=== PATIENT | female | born 1950 | race Caucasian/White ===

== ENCOUNTER → 2016-10-01 | Outpatient (CLI) | payer MEDICARE, OTHER ==
[~2016-10-01] MED LIST: ALPR-138 PO; AMBI12.5 PO; BONI150T PO; CALC600T34 PO; COZA50TA PO; FLON0.053; NEXI40CA PO; SIMV20 PO; TAB-TAB PO
[2016-10-01 13:15] LABS: HEMATOCRIT 38.1 % (35.0-46.0); MEAN CELL VOLUME 90.7 FL (80.0-100.0); MEAN CORPUSCULAR HGB CONC 33.1 % (32.0-36.0); PLATELET COUNT 212 TH/MM3 (150-450); RED CELL DISTRIBUTION WIDTH 14.1 % (11.6-17.2); REVIEW FLAG FINAL; WHITE BLOOD COUNT 7.2 TH/MM3 (4.0-11.0)
[2016-10-01 13:20] LABS: BLOOD, URINE NEG (NEG); GLUCOSE,URINE NEG (NEG); KETONE, URINE NEG (NEG); NITRITE,URINE NEG (NEG); PH, URINE 6.5 (5.0-8.5); SQUAMOUS EPITHELIAL CELL URINE <1 /hpf (0-5); URINE COLOR LIGHT-YELLOW (YELLW/STRAW)
[2016-10-01 13:46] LABS: ANION GAP 6 MEQ/L (5-15); AST (GOT) 21 U/L (15-37); BICARBONATE 33.4 MEQ/L (21.0-32.0); BLOOD UREA NITROGEN 11 MG/DL (7-18); CHLORIDE 101 MEQ/L (98-107); GLUCOSE,FASTING 89 MG/DL (74-99); POTASSIUM 3.7 MEQ/L (3.5-5.1); SODIUM (NA) 140 MEQ/L (136-145)
[2016-10-01 13:57] LABS: ALKALINE PHOSPHATASE 89 U/L (45-117); ALT (GPT) 25 U/L (10-53); GLOMERULAR FILTRATION RATE 66 ML/MIN (>89); HDL CHOLESTEROL 59.4 MG/DL (40.0-60.0); LDL CHOLESTEROL 99 MG/DL (0-99); THYROXINE (T4) 8.7 MCG/DL (4.8-13.9); TOTAL BILIRUBIN ADULT 0.3 MG/DL (0.2-1.0)
== END ==
LOC: PLAB 08:39
PROVIDERS: ATTEND Internal Medicine
DX: E78.5 Hyperlipidemia, unspecified (principal); E03.9 Hypothyroidism, unspecified
CPT/HCPCS: 36415; 80053; 80061; 81001; 84436; 84443; 85027

== ENCOUNTER 2017-04-04 10:48 | Emergency (ER) | payer MEDICARE, OTHER ==
[~2017-04-04] VITALS: Ht 157.5 cm; Wt 62.0 kg
[2017-04-04 10:53] VITALS: BP 147/68; PULSE 61; RESP 16; TEMP 97.4; O2SAT 98
[2017-04-04] MEDS ORDERED: CALC1TAB87 PO (11:05)
[2017-04-04] MEDS ORDERED: OMEP20TA93 PO (11:05)
[2017-04-04] MEDS ORDERED: LOSA50TA PO (11:05)
[2017-04-04] MEDS ORDERED: ALIG4CAP PO (11:05)
[2017-04-04] MEDS ORDERED: BIOTCAP PO (11:05)
[2017-04-04] MEDS ORDERED: VITA250T3 PO (11:05)
[2017-04-04] MEDS ORDERED: SIMV20TA PO (11:06)
[2017-04-04] MEDS ORDERED: REST0.05 EACH EYE (11:06)
[2017-04-04] MEDS ORDERED: ALPR.25 PO (11:06)
[2017-04-04] MEDS ORDERED: MULTTAB67 PO (11:06)
[2017-04-04] MEDS ORDERED: FLUT50SP EACH NARE (11:06)
[2017-04-04] MEDS ORDERED: AMBI12.5 PO (11:06)
[2017-04-04] MEDS ORDERED: MORPHINE SULFATE 4 MG/ML INJ IV PUSH ONE (11:30)
[2017-04-04] MEDS ORDERED: ONDANSETRON HCL 4 MG/2 ML VIAL IVP ONE (11:30)
[2017-04-04] MEDS ORDERED: MORPHINE SULFATE 2 MG/ML INJ IV PUSH ONE (11:30)
[2017-04-04] MEDS ORDERED: SODIUM CHLORIDE 0.9% FLUSH 10 ML FLUSH IV FLUSH PRN (11:30)
--- NOTE | 2017-04-04 11:34 | PD ---
HPI Chief Complaint: GI Complaint Time Seen by Provider: 11:17 Travel History International Travel<30 days: No Contact w/Intl Traveler<30days: No Traveled to known affect area: No History of Present Illness HPI The patient was seen and examined in the presence of the nurse. She complains of abdominal pain. Location is left lower quadrant. Severity is moderate. Duration 2.5 hours. No alleviating factors. She has nausea but no vomiting or diarrhea or constipation or fever. No exacerbating factors. PFSH Past Medical History Anxiety: Yes Cancer: No Diabetes: No Hepatitis: No Hiatal Hernia: No Hypertension: Yes Medical other: Yes (HYPERCHOLSTEROLEMIA) Respiratory: Yes (SMOKER) Thyroid Disease: No Past Surgical History Abdominal Surgery: Yes (CHOLECYSTECTOMY) Ear Surgery: No Eye Surgery: No Gynecologic Surgery: Yes (TUBAL LIGATION) Oral Surgery: No Pacemaker: No Other Surgery: Yes Social History Alcohol Use: No Tobacco Use: No Substance Use: No Allergies-Medications (Allergen,Severity, Reaction): Coded Allergies: ibuprofen (Unverified Allergy, Severe, HIVES, SWELLING, 04/04/17) naproxen (Unverified Allergy, Severe, Swelling, 04/04/17) clarithromycin (Unverified Adverse Reaction, Severe, upset stomach, ) Uncoded Allergies: nsaids (Allergy, Severe, swelling of the face and tongue, 04/08/07) Reported Meds & Prescriptions Reported Meds & Active Scripts Active Flomax (Tamsulosin HCl) 0.4 Mg Cap 0.4 Mg PO HS Zofran (Ondansetron HCl) 4 Mg Tab 4 Mg PO Q6HR PRN Percocet (Oxycodone-Acetaminophen) 5-325 mg Tab 1 Tab PO Q6H PRN Reported Restasis Opth (Cyclosporine Opth) 0.05% Emul 1 Drop EACH EYE BID Fluticasone Nasal [place] 50 Mcg/Act Naspr 50 Mcg EACH NARE DAILY 50 mcg/spray Multiple Vitamin 1 Tab 1 Tab PO DAILY Ambien CR (Zolpidem Tartrate) 12.5 Mg Tab 12.5 Mg PO HS PRN Xanax (Alprazolam) 0.25 Mg Tab 0.5 Mg PO DAILY PRN Simvastatin 20 Mg Tab 20 Mg PO DAILY Biotin 5 Mg Cap 5 Mg PO Vitamin C (Ascorbic Acid) 250 Mg Tab 500 Mg PO BID Align (Lactobacillus Rhamnosus (GG)) 4 Mg (1 Billion Cell) Cap 4 Mg PO DAILY Calcium 600 with Vitamin D (Calcium Carbonate-Cholecalciferol) 600-400 mg-Unit Tab 1 Tab PO BID Omeprazole 20 Mg Tab 20 Mg PO DAILY Losartan (Losartan Potassium) 50 Mg Tab 50 Mg PO DAILY Review of Systems General / Constitutional: No: Fever Eyes: No: Visual changes HENT: No: Headaches Cardiovascular: No: Chest Pain or Discomfort Respiratory: No: Shortness of Breath Gastrointestinal: Positive: Nausea, Abdominal Pain Genitourinary: No: Dysuria Musculoskeletal: No: Pain Skin: No Rash Neurologic: No: Weakness Psychiatric: No: Depression Endocrine: No: Polydipsia Hematologic/Lymphatic: No: Easy Bruising Physical Exam Narrative GENERAL: Well-nourished, well-developed patient with abdominal pain . SKIN: Focused skin assessment reveals no rash and nodules. Skin is Warm and dry. HEAD: Atraumatic. Normocephalic. EYES: Pupils equal and round. No scleral icterus. No injection or drainage. ENT: No nasal bleeding or discharge. Mucous membranes pink and moist. NECK: Trachea midline. No JVD. CARDIOVASCULAR: Regular rate and rhythm. No murmur appreciated. RESPIRATORY: No accessory muscle use. Clear to auscultation. Breath sounds equal bilaterally. GASTROINTESTINAL: Abdomen soft, left lower quadrant is tender without rebound or guarding , nondistended. Hepatic and splenic margins not palpable. MUSCULOSKELETAL: No obvious deformities. No clubbing. No cyanosis. No edema. NEUROLOGICAL: Awake and alert. No obvious cranial nerve deficits. Motor grossly within normal limits. Normal speech. PSYCHIATRIC: Appropriate mood and affect; insight and judgment normal. Data Data Last Documented VS Vital Signs Date Time Temp Pulse Resp B/P (MAP) Pulse Ox O2 Delivery O2 Flow Rate FiO2 04/04/17 13:38 72 16 178/67 (104) 100 Room Air 04/04/17 10:53 97.4 Orders Orders Basic Metabolic Panel (Bmp) (04/04/17 11:23) Complete Blood Count With Diff (04/04/17 11:23) Prothrombin Time / Inr (Pt) (04/04/17 11:23) Act Partial Throm Time (Ptt) (04/04/17 11:23) Urinalysis - C+S If Indicated (04/04/17 11:23) Ct Abd/Pel W Iv Contrast(Rout) (04/04/17 11:23) Iv Access Insert/Monitor (04/04/17 11:23) Ecg Monitoring (04/04/17 11:23) Oximetry (04/04/17 11:23) Sodium Chloride 0.9% Flush (Ns Flush) (04/04/17 11:30) Ondansetron Inj (Zofran Inj) (04/04/17 11:30) Morphine Inj (Morphine Inj) (04/04/17 11:30) Morphine Inj (Morphine Inj) (04/04/17 11:30) Iohexol 350 Inj (Omnipaque 350 Inj) (04/04/17 12:14) Sodium Chlor 0.9% 1000 Ml Inj (Ns 1000 M (04/04/17 12:45) Hydromorphone Pf Inj (Dilaudid Pf Inj) (04/04/17 12:45) Cath For Specimen (04/04/17 13:25) Ed Discharge Order (04/04/17 14:06) Labs Laboratory Tests Test 04/04/17 11:35 04/04/17 13:33 White Blood Count 9.9 TH/MM3 Red Blood Count 4.29 MIL/MM3 Hemoglobin 13.1 GM/DL Hematocrit 39.5 % Mean Corpuscular Volume 92.1 FL Mean Corpuscular Hemoglobin 30.5 PG Mean Corpuscular Hemoglobin Concent 33.2 % Red Cell Distribution Width 12.5 % Platelet Count 213 TH/MM3 Mean Platelet Volume 8.7 FL Neutrophils (%) (Auto) 79.4 % Lymphocytes (%) (Auto) 11.4 % Monocytes (%) (Auto) 6.2 % Eosinophils (%) (Auto) 0.2 % Basophils (%) (Auto) 2.8 % Neutrophils # (Auto) 7.9 TH/MM3 Lymphocytes # (Auto) 1.1 TH/MM3 Monocytes # (Auto) 0.6 TH/MM3 Eosinophils # (Auto) 0.0 TH/MM3 Basophils # (Auto) 0.3 TH/MM3 CBC Comment DIFF FINAL Differential Comment Prothrombin Time 9.7 SEC Prothromb Time International Ratio 1.0 RATIO Activated Partial Thromboplast Time 23.6 SEC Blood Urea Nitrogen 11 MG/DL Creatinine 1.10 MG/DL Random Glucose 140 MG/DL Calcium Level 9.5 MG/DL Sodium Level 139 MEQ/L Potassium Level 4.0 MEQ/L Chloride Level 103 MEQ/L Carbon Dioxide Level 31.3 MEQ/L Anion Gap 5 MEQ/L Estimat Glomerular Filtration Rate 49 ML/MIN Urine Collection Type CATH Urine Color YELLOW Urine Turbidity CLEAR Urine pH 6.0 Urine Specific [place] 1.010 Urine Protein NEG mg/dL Urine Glucose (UA) NEG mg/dL Urine Ketones NEG mg/dL Urine Occult Blood TRACE Urine Nitrite NEG Urine Bilirubin NEG Urine Leukocyte Esterase NEG Urine RBC 4-9 /hpf Urine WBC 3-5 /hpf Urine Squamous Epithelial Cells 0-5 /hpf Microscopic Urinalysis Comment CATH-CULT NOT IND Urine Collection Time 13:33 [facility] Medical Decision Making Medical Screen Exam Complete: Yes Emergency Medical Condition: Yes Medical Record Reviewed: Yes Differential Diagnosis Diverticulitis, colitis, ileus, obstruction Narrative Course I have reviewed the patient's electronic medical record. IV placed CBC is normal metabolic profile is normal Urinalysis shows a few red cells but no infection Coagulation studies are normal I gave her a dose of morphine and Zofran for symptom relief CT of abdomen and pelvis with IV contrast reveals obstructive uropathy with a 3.5 mm left-sided ureteral stone I gave her additional Dilaudid injection and she is feeling improved at this time Scripts for pain and nausea medicine and Flomax written She will follow with urology Diagnosis Primary Impression: Kidney stone on left side Additional Instructions: The patient was advised to follow up with urologist and return if they worsen. The patient was warned about potential sedation for the medications they will receive on prescription. Med/Other Pt SpecificInfo: Prescription(s) given Scripts Tamsulosin (Flomax) 0.4 Mg Cap 0.4 MG PO HS for Manage Prostate Problems, #10 CAP 0 Refills Prov: Olvin Herrera MD 04/04/17 Ondansetron (Zofran) 4 Mg Tab 4 MG PO Q6HR Y for NAUSEA OR VOMITING, #20 TAB 0 Refills Prov: Olvin Herrera MD 04/04/17 Oxycodone-Acetaminophen (Percocet) 5-325 mg Tab 1 TAB PO Q6H Y for PAIN, #30 TAB 0 Refills Prov: Olvin Herrera MD 04/04/17 Disposition: 01 DISCHARGE HOME Condition: Stable Olvin Herrera MD Apr 04, 2017 11:34
[2017-04-04 11:37] VITALS: O2SAT 98
[2017-04-04 11:47] LABS: AUTOMATED NEUTROPHIL # 7.9 TH/MM3 (1.8-7.7); BASOPHIL # 0.3 TH/MM3 (0-0.2); BASOPHIL % 2.8 % (0.0-2.0); EOSINOPHIL % 0.2 % (0.0-4.0); HEMATOCRIT 39.5 % (35.0-46.0); HEMOGLOBIN 13.1 GM/DL (11.6-15.3); LYMPH % 11.4 % (9.0-44.0); LYMPHOCYTE # 1.1 TH/MM3 (1.0-4.8); MEAN CELL VOLUME 92.1 FL (80.0-100.0); MEAN CORPUSCULAR HEMOGLOBIN 30.5 PG (27.0-34.0); MEAN CORPUSCULAR HGB CONC 33.2 % (32.0-36.0); MEAN PLATELET VOLUME 8.7 FL (7.0-11.0); MONO % 6.2 % (0.0-8.0); MONOCYTE # 0.6 TH/MM3 (0-0.9); NEUT % 79.4 % (16.0-70.0); PLATELET COUNT 213 TH/MM3 (150-450); RED BLOOD COUNT 4.29 MIL/MM3 (4.00-5.30); RED CELL DISTRIBUTION WIDTH 12.5 % (11.6-17.2); WHITE BLOOD COUNT 9.9 TH/MM3 (4.0-11.0)
[2017-04-04 11:55] LABS: CALCIUM 9.5 MG/DL (8.5-10.1)
[2017-04-04 11:56] LABS: BICARBONATE 31.3 MEQ/L (21.0-32.0)
[2017-04-04 11:58] LABS: PROTHROMBIN TIME - PATIENT 9.7 SEC (9.8-11.6)
[2017-04-04 11:59] LABS: CREATININE 1.1 MG/DL (0.50-1.00)
[2017-04-04] MEDS ORDERED: IOHEXOL 350 MG/ML 10 ML VIAL (for RAD DIAG) IVCONTRAST ONE (12:14)
[2017-04-04 12:31] VITALS: BP 169/82; PULSE 69; RESP 16; O2SAT 100
--- NOTE | 2017-04-04 12:32 | RADRPT ---
EXAM DATE/TIME: 04/04/2017 12:03 [place] COMPARISON: No previous studies available for comparison. INDICATIONS : Left lower quadrant pain and nausea. IV CONTRAST: 85 cc Omnipaque 350 (iohexol) IV ORAL CONTRAST: No oral contrast ingested. RADIATION DOSE: 6.01 CTDIvol (mGy) MEDICAL HISTORY : Hypertension. SURGICAL HISTORY : Cholecystectomy. Tubal ligation. ENCOUNTER: Initial ACUITY: 1 day PAIN SCALE: 7/10 LOCATION: Left lower quadrant TECHNIQUE: Volumetric scanning of the abdomen and pelvis was performed. Using automated exposure control and ad justment of the mA and/or kV according to patient size, radiation dose was kept as low as reasonably achievable to obtain optimal diagnostic quality images. DICOM format image data is available electro nically for review and comparison. FINDINGS: Minimal dependent atelectasis in the lung bases. Previous cholecystectomy. Minimal biliary ductal pro minence. Liver, spleen, adrenals, right kidney and pancreas are unremarkable. There is a moderate left-sided hydronephrosis and ureteral dilatation above an approximately 3.5 mm c alculus at the left ureterovesical junction. Mild left perinephric stranding. CONCLUSION: 1. Left-sided obstructive uropathy above a 3.5 mm calculus at the left ureterovesical junction with m ild to moderate left hydronephrosis and perinephric stranding. Mark Shahid MD on April 04, 2017 at 12:23 Board Certified Radiologist. This report was verified electronically.
[2017-04-04] MEDS ORDERED: SODIUM CHLOR 0.9% 1000 ML INJ 1,000 ML IV ONE (12:45)
[2017-04-04] MEDS ORDERED: HYDROmorphone HCL PF 2 MG/ML VIAL IVP ONE (12:45)
[2017-04-04 13:10] VITALS: RESP 18; O2SAT 94
[2017-04-04 13:38] VITALS: BP 178/67; PULSE 72; RESP 16; O2SAT 100
[2017-04-04 13:47] LABS: BILIRUBIN, URINE NEG (NEG); BLOOD, URINE TRACE (NEG); GLUCOSE,URINE NEG (NEG); KETONE, URINE NEG (NEG); NITRITE,URINE NEG (NEG); URINE LEUKOCYTE ESTERASE NEG (NEG)
[2017-04-04 13:51] LABS: URINE COLOR YELLOW (YELLW/STRAW)
[2017-04-04 13:52] LABS: SQUAMOUS EPITHELIAL CELL URINE 0-5 /hpf (0-5)
[2017-04-04] MEDS ORDERED: PERC5TAB12 PO (14:05)
[2017-04-04] MEDS ORDERED: TAMS5CAP PO (14:05)
[2017-04-04] MEDS ORDERED: ZOFR4TAB PO (14:05)
[2017-04-04 14:12] VITALS: BP 178/67
== END 2017-04-04 14:18 | disposition home or self-care (01) ==
LOC: PHED 10:48
DX: N20.0 Calculus of kidney (principal); R11.2 Nausea with vomiting, unspecified; I10 Essential (primary) hypertension
CPT/HCPCS: 74177; 80048; 81001; 85025; 85610; 85730; 96361; 96374; 96375; 99285; J1170; J2270; J2405; J7030; P9612; Q9967

== ENCOUNTER → 2017-06-18 | Outpatient (CLI) | payer MEDICARE, OTHER ==
[~2017-06-18] MED LIST changes: +ALIG4CAP PO; -ALPR-138 PO; +ALPR.25 PO; +BIOTCAP PO; -BONI150T PO; +CALC1TAB87 PO; -CALC600T34 PO; -COZA50TA PO; -FLON0.053; +FLUT50SP EACH NARE; +LOSA50TA PO; +MULTTAB67 PO; -NEXI40CA PO; +OMEP20TA93 PO; +PERC5TAB12 PO; +REST0.05 EACH EYE; -SIMV20 PO; +SIMV20TA PO; -TAB-TAB PO; +TAMS5CAP PO; +VITA250T3 PO; +ZOFR4TAB PO
[2017-06-18 10:58] LABS: AUTOMATED NEUTROPHIL # 5.4 TH/MM3 (1.8-7.7); BASOPHIL # 0.1 TH/MM3 (0-0.2); BASOPHIL % 0.6 % (0.0-2.0); EOSINOPHIL # 0.3 TH/MM3 (0-0.4); EOSINOPHIL % 3.1 % (0.0-4.0); HEMATOCRIT 39.7 % (35.0-46.0); HEMOGLOBIN 13.4 GM/DL (11.6-15.3); LYMPH % 26.9 % (9.0-44.0); LYMPHOCYTE # 2.4 TH/MM3 (1.0-4.8); MEAN CELL VOLUME 92.2 FL (80.0-100.0); MEAN CORPUSCULAR HEMOGLOBIN 31.1 PG (27.0-34.0); MEAN CORPUSCULAR HGB CONC 33.7 % (32.0-36.0); MEAN PLATELET VOLUME 9.8 FL (7.0-11.0); MONO % 9.5 % (0.0-8.0); MONOCYTE # 0.9 TH/MM3 (0-0.9); NEUT % 59.9 % (16.0-70.0); PLATELET COUNT 209 TH/MM3 (150-450); RED CELL DISTRIBUTION WIDTH 13.4 % (11.6-17.2)
[2017-06-18 11:00] LABS: ALBUMIN 3.4 GM/DL (3.4-5.0); AST (GOT) 16 U/L (15-37); BICARBONATE 30.4 MEQ/L (21.0-32.0); BLOOD UREA NITROGEN 12 MG/DL (7-18); CALCIUM 8.3 MG/DL (8.5-10.1); CHLORIDE 105 MEQ/L (98-107); CREATININE 0.94 MG/DL (0.50-1.00); GLOMERULAR FILTRATION RATE 59 ML/MIN (>89); GLUCOSE,FASTING 99 MG/DL (74-99); SODIUM (NA) 142 MEQ/L (136-145)
[2017-06-18 11:01] LABS: CHOLESTEROL 180 MG/DL (120-200); TRIGLYCERIDES 47 MG/DL (42-150)
[2017-06-18 11:11] LABS: ALKALINE PHOSPHATASE 106 U/L (45-117); ALT (GPT) 19 U/L (10-53); CHOLESTEROL/ HDL RATIO 2.93 RATIO; FREE T4 0.96 NG/DL (0.76-1.46); HDL CHOLESTEROL 61.3 MG/DL (40.0-60.0); LDL CHOLESTEROL 109 MG/DL (0-99); TOTAL BILIRUBIN ADULT 0.3 MG/DL (0.2-1.0); TOTAL PROTEIN 6.9 GM/DL (6.4-8.2)
[2017-06-18 13:33] LABS: AMORPHOUS SEDIMENT, URINE RARE; BILIRUBIN, URINE NEG (NEG); BLOOD, URINE NEG (NEG); GLUCOSE,URINE NEG (NEG); KETONE, URINE NEG (NEG); NITRITE,URINE NEG (NEG); PH, URINE 5.5 (5.0-8.5); SQUAMOUS EPITHELIAL CELL URINE 6 /hpf (0-5); URINE COLOR LIGHT-YELLOW (YELLW/STRAW); URINE LEUKOCYTE ESTERASE SMALL (NEG)
== END ==
LOC: PLAB 07:25
PROVIDERS: ATTEND Internal Medicine
DX: E78.5 Hyperlipidemia, unspecified (principal)
CPT/HCPCS: 36415; 80053; 80061; 81001; 82272; 84439; 84443; 85025